=== PATIENT | male | born 1965 | race Caucasian/White ===

== ENCOUNTER 2020-08-16 05:13 | Observation (INO) | payer BC ==
[~2020-08-16] VITALS: Ht 188 cm; Wt 111.4 kg
[2020-08-16 05:42] LABS: BASO % 0.2 % (0.0-2.0); EOS % 0.4 % (0-4.0); GRAN # 6.9 (1.4-6.5); GRAN % 73.8 % (42.2-75.2); HEMATOCRIT 39.2 % (42.0-52.0); HEMOGLOBIN 13.2 g/dl (13.5-18.0); LYMPH # 1.6 (1.2-3.4); LYMPH % 16.6 % (20.0-51.0); MEAN CELL VOLUME 97 fl (80.0-100.0); MEAN CORPUSCULAR HEMOGLOBIN 33 pg (27.0-31.0); MEAN CORPUSCULAR HGB CONC 34 g/dl (33.0-37.0); MONO # 0.8 (0.1-0.6); MONO % 8.7 % (1.7-9.3); PLATELET COUNT 150 K/mm3 (130-400); RED BLOOD COUNT 4.05 M/mm3 (4.20-5.60); REDCELL DISTRIBUTION WIDTH-CV 12.9 % (11.5-14.5)
[2020-08-16 05:53] LABS: ALBUMIN 3.9 gm/dL (3.5-5.0); BILIRUBIN,TOTAL 1.1 mg/dL (0.0-1.0); C-REACTIVE PROTEIN 4.2 mg/dL (0.0-0.9); CALCIUM 8.6 mg/dL (8.4-10.2); CREATININE, serum 0.81 (0.66-1.25); POTASSIUM 3.6 mmol/L (3.4-5.0); TOTAL PROTEIN 7.4 gm/dL (6.4-8.2)
[2020-08-16 08:20] VITALS: BP 134/74; PULSE 62; TEMP 98
--- NOTE | 2020-08-16 08:28 | NUR ---
VOICEMAIL LEFT FOR OFFICE FOR CONSULT. CALLED BACK NUMBER LEFT. PATIENT RECEIVED FROM ER, IN ROOM 327. LABS CALLED FOR BLOOD CULTURES. WILL ADMIT PATIENT.
--- NOTE | 2020-08-16 09:19 | NUR ---
Patient admitted to room 327. He is sitting up in chair & watching TV. Aware he is npo until we hear back from oral surgon. he is agreeable. His face is very swollen to the right side of his face. swelling into his eye. He reports norco given in ER helped slightly with the pain. Int to right hand. Will contiue to closely monitor.
--- NOTE | 2020-08-16 11:42 | NUR ---
First visit from the kennel keeper. No needs right now.
[2020-08-16 12:12] VITALS: BP 144/65; PULSE 99; TEMP 97.8
[2020-08-16 12:17] VITALS: BP 148/77; PULSE 61; TEMP 99.1
--- NOTE | 2020-08-16 14:09 | NUR ---
ANDREWS HACKETT CALLED-PATIENT STILL EXPERIENCING PAIN AFTER MORPHINE & NORCO. FACE CONTINUES TO APPEAR TO BE SWELLING. iCE PACK PROVIDED.
--- NOTE | 2020-08-16 15:30 | NUR ---
Patient feeling better after toradol. aware of the plan of care awaiting to round.
[2020-08-16 16:12] VITALS: BP 143/80; PULSE 60; TEMP 98.7
--- NOTE | 2020-08-16 19:20 | NUR ---
Patient sitting up in chair. feeling better. facial swelling still present but overall improving. Recommendations from given. Patient able to eat tray he ordered & he tolerated well. IVF and antibioitcs per orders. report to fredy
[2020-08-16 20:00] VITALS: BP 140/71; PULSE 60; TEMP 98.4
--- NOTE | 2020-08-16 20:30 | NUR ---
PATIENT IS CALM IN THE ROOM.AOX4,ON RA.IVFS ON GOOD PROGRESS.MEDS GIVEN ORDERED.ASSESSMENT DONE.NO OTHER NEEDS AT THIS TIME.
[2020-08-17 01:11] VITALS: BP 124/68; PULSE 81; TEMP 98.2
[2020-08-17 04:15] VITALS: BP 131/72; PULSE 63; TEMP 98.1
--- NOTE | 2020-08-17 05:16 | NUR ---
PATIENT HAD A RESTFUL NIGHT,ON PAIN CONTROL PER ORDER.REPORTS PAIN AT 7/10.TORADOL IV GIVEN.NO OTHER NEEDS AT THIS TIME.
[2020-08-17 06:39] LABS: BASO % 0.1 % (0.0-2.0); EOS # 0.1 (0.0-0.7); EOS % 1.3 % (0-4.0); GRAN # 4.7 (1.4-6.5); GRAN % 66.2 % (42.2-75.2); HEMOGLOBIN 11.5 g/dl (13.5-18.0); LYMPH # 1.5 (1.2-3.4); LYMPH % 21.2 % (20.0-51.0); MEAN CELL VOLUME 98 fl (80.0-100.0); MEAN CORPUSCULAR HEMOGLOBIN 33 pg (27.0-31.0); MEAN CORPUSCULAR HGB CONC 33 g/dl (33.0-37.0); MEAN PLATELET VOLUME 13.3 fl (7.4-10.4); MONO # 0.8 (0.1-0.6); MONO % 11.1 % (1.7-9.3); PLATELET COUNT 146 K/mm3 (130-400); RED BLOOD COUNT 3.54 M/mm3 (4.20-5.60); REDCELL DISTRIBUTION WIDTH-CV 12.9 % (11.5-14.5)
[2020-08-17 06:40] LABS: HEMATOCRIT 34.7 % (42.0-52.0)
[2020-08-17 06:49] LABS: ALBUMIN 3.1 gm/dL (3.5-5.0); BILIRUBIN,TOTAL 0.7 mg/dL (0.0-1.0); CALCIUM 8.1 mg/dL (8.4-10.2); CREATININE, serum 0.81 (0.66-1.25); POTASSIUM 3.8 mmol/L (3.4-5.0); TOTAL PROTEIN 6.2 gm/dL (6.4-8.2)
[2020-08-17] MEDS ORDERED: AMOXICILLIN 8751 TAB PO (07:53)
--- NOTE | 2020-08-17 08:00 | NUR ---
PATIENT IS A&O. VSS. C/O PAIN IN ABCESSED TOOTH RATED AT 6/10. GAVE PRN NORCO WITH AM MEDS. PATIENT ALSO RECEIVING IV ABX. PATIENT HOPING TO DISCHARGE HOME LATER TODAY AND WILL F/U WITH AN ORAL SURGEON TO HAVE THE TOOTH EXTRACTED. HEAD TO TOE ASSESSMENT COMPLETE. PATIENT IS INDEPENDENT IN ROOM. NO OTHER NEEDS.
[2020-08-17 08:05] VITALS: BP 133/79; PULSE 66; TEMP 98.7
[2020-08-17] MEDS ORDERED: NORCO 325 MG-51 TAB PO (08:43)
--- NOTE | 2020-08-17 09:49 | NUR ---
Discharge plan: Home Sw met with the patient who stated his preference to return home once medically stable. The pt is currenlty on a work job here in [place] till mid January and he then will return home back to [place] to his fiance' Paulette Crowe (ph# [phone]) . The pt is independnent on all ADLs and does not us any DME. Pt would like to use [facility] here in [place] while he's working in [place]. The Pt does not have a PCP, but he has been setup with a follow up appointment with Nick high 08/31 at 1330. Pt does not have a DPAO-HC and is not interested in one at this time. No other needs stated at this time. Sw to await for further recommendations and follow up as needed. time.
--- NOTE | 2020-08-17 10:40 | NUR ---
Follow up visit from the manager process improvement. No needs right now.
[2020-08-17 11:37] VITALS: BP 145/73; PULSE 64; TEMP 99
--- NOTE | 2020-08-17 13:45 | NUR ---
PATIENT'S IV ABX COMPLETE. DC'D RIGHT HAND IV, COVERED SITE WITH GAUZE & COBAN. GAVE DISCHARGE INSTRUCTIONS, E-SCRIPTS SENT, AND DISCUSSED F/U APTS. ANSWERED ALL QUESTIONS/CONCERNS. PATIENT IS DRESSED, PACKED AND ESCORTED OUT.
== END 2020-08-17 13:45 | disposition home or self-care (01) ==
LOC: COL.ER 05:13 → SURG 05:39
PROVIDERS: Emergency Medicine; Physician Assistant; ADMIT Hospitalist
DX: K04.7 Periapical abscess without sinus (principal); R22.0 Localized swelling, mass and lump, head; I10 Essential (primary) hypertension; D64.9 Anemia, unspecified; E72.51 Non-ketotic hyperglycinemia; F17.210 Nicotine dependence, cigarettes, uncomplicated
CPT/HCPCS: G0378; J0295; J1885; J2270; J7030; Q9967